=== PATIENT | male | born 1955 | race Caucasian/White ===

== ENCOUNTER → 2020-09-20 07:36 | Outpatient (BNVA) | payer SELFPAY | PROVIDERS: PCP Physician Assistant; Referring Provider Physician Assistant; Visit Provider Physician Assistant | DX: Z76.89 Persons encountering health services in other specified circumstances (principal) ==

== ENCOUNTER 2020-11-16 08:55 | Day surgery (SDC) | payer OTHER, SELFPAY ==
[2020-11-10 15:36] VITALS: BMI 41.5
--- NOTE | 2020-11-15 08:36 | P.CONAN_ITS ---
Documented by User: Tia Garza 11/15/20 08:37 HPI - Anesthesia Eval Consult details Narrative: 65yo M for Colonoscopy PMFSH Past Medical History Medical History Hernia of abdominal wall HTN (hypertension) Hyperlipidemia Obesity Sleep apnea Family History Family History Father No problems noted. Surgical History Surgical History Hx of colonoscopy Hx of umbilical hernia repair Hx of vasectomy Social History Social History Household Members: Spouse Are you a primary ocular care technologist to a significant other at home: No Do you presently have visiting nurse or other home services: No Alcohol intake: current Smoking Status: Never smoker Second Hand Smoke Exposure: No Use of substances other than those prescribed or required for medical reasons: No Advance Directives: No Advance Directives Information Provided: No Advance Directives on File: No Recently lost weight without trying: No Current occupational status: employed Current occupation: [employer] Meds Allergies Allergy/AdvReac Type Severity Reaction Status Date / Time Penicillins AdvReac Intermediate itching, Verified 11/10/20 15:23 severe rash Home Medications Medication Instructions Recorded Confirmed Type aspirin 81 mg tablet,delayed 81 mg PO DAILY 09/20/20 11/10/20 History release fenofibrate micronized 160 mg 160 mg PO DAILY 09/20/20 11/10/20 History tablet flaxseed oil 1,000 mg capsule 1,000 mg PO DAILY 09/20/20 11/10/20 History lisinopril 20 1 tab PO DAILY 09/20/20 11/10/20 History mg-hydrochlorothiazide 25 mg tablet pravastatin 80 mg tablet 80 mg PO DAILY 09/20/20 11/10/20 History amlodipine 1 tab PO DAILY 11/10/20 11/10/20 History Exam Exam Date and Time: November 15, 2020 0836 Height,Weight and Vital Signs: Height 5 ft 7 in Weight 120.202 kg Assessment and Plan Assessment Anesthesia Assessment: Chart Reviewed Documented by User: Sharee Ernst 11/16/20 09:50 [facility] Past Medical History Medical History Hernia of abdominal wall HTN (hypertension) Hyperlipidemia Obesity Sleep apnea Family History Family History Father No problems noted. Family history of problems with anesthesia: No Surgical History Surgical History Hx of colonoscopy Hx of umbilical hernia repair Hx of vasectomy History of Problems with Anesthesia: No Social History Social History Household Members: Spouse Are you a primary ocular care technologist to a significant other at home: No Do you presently have visiting nurse or other home services: No Alcohol intake: current Smoking Status: Never smoker Second Hand Smoke Exposure: No Use of substances other than those prescribed or required for medical reasons: No Advance Directives: No Advance Directives Information Provided: No Advance Directives on File: No Recently lost weight without trying: No Current occupational status: employed Current occupation: [employer] Meds Allergies Allergy/AdvReac Type Severity Reaction Status Date / Time Penicillins AdvReac Intermediate itching, Verified 11/10/20 15:23 severe rash Home Medications Medication Instructions Recorded Confirmed Type aspirin 81 mg tablet,delayed 81 mg PO DAILY 09/20/20 11/10/20 History release fenofibrate micronized 160 mg 160 mg PO DAILY 09/20/20 11/10/20 History tablet flaxseed oil 1,000 mg capsule 1,000 mg PO DAILY 09/20/20 11/10/20 History lisinopril 20 1 tab PO DAILY 09/20/20 11/10/20 History mg-hydrochlorothiazide 25 mg tablet pravastatin 80 mg tablet 80 mg PO DAILY 09/20/20 11/10/20 History amlodipine 1 tab PO DAILY 11/10/20 11/10/20 History Exam Height,Weight and Vital Signs: Vital Signs Temp Pulse Resp BP Pulse Ox 11/16/20 09:08 98.2 F 92 16 155/93 H 97 Airway Mallampati Class: III TM Dist: >3cm Neck ROM: Full Partial: Upper and Lower Heart: RRR Lungs: CTAB Assessment and Plan Assessment Anesthesia Assessment: Anesthesia Plan Discussed and Chart Reviewed Final Anesthetic Review NPO: Yes ASA Class: III Final Preanesthetic Review: No Changes in Pt Med Stat, Meds/Allgs Chart Reviewed, Consent Obtained/Reviewed and Anes Risks/Benef Reviewed Patient Risk: Intermediate Procedure Risk: Low Assessment/Block/Sedation in SS: Assess/Block/Sedation-SS Anesthetic Plan Anesthetic Plan: MAC: Disposition: Standard PACU
[2020-11-16 09:08] VITALS: BP 155/93; PULSE 92; RESP 16; TEMP 36.8; O2SAT 97
[2020-11-16] MEDS: Lactated Ringers 1,000 ML 100 ML IVCONT (09:22)
--- NOTE | 2020-11-16 09:32 | P.HPSUR_ITS ---
Pre-Procedural Eval Section B Chief Complaint: screening Relevant Family History (Specify if Yes): No Relevant Social History: None Present Medications: see Short Stay Collaborative assessment Medical History: Significant History (Hernia of abdominal wall HTN (hypertension) Hyperlipidemia Obesity Sleep apnea) History of Previous Operations: Relevant previous surgery/procedure and date(s) (vasectomy, umbilical hernia repair) Allergies: Allergies Allergy/AdvReac Type Severity Reaction Status Date / Time Penicillins AdvReac Intermediate itching, Verified 11/10/20 15:23 severe rash Review of Systems Sugical H&P ROS: Negative: Constitution, Cardiovascular, Respiratory, Neurolog ical, Psychiatric, Hem-Onc, Allergic/Immunologic, Gastrointestinal, Genitourinary, Musculoskeletal, Integumentary, Endocrine and Eyes/Ears/Nose/Throat Exam Surgical H&P Exam: Normal: HEENT, Normal: Heart, Normal: Lungs, Normal: Extremities, Normal: Abdomen, Normal: Skin and Normal: Neurological Plan Diagnosis/Plan: Unchanged I have reviewed the history and physical and performed a pertinent physical examination on my patient. No changes have occurred unless specified.
--- NOTE | 2020-11-16 10:08 | PM.OP ---
Brief Operative Note Date of Service: 11/16/20 Pre-op diagnosis: colon screen Post-op diagnosis: same Procedure: see op note Surgeon: Ashley Bartlett MD Anesthesia: MAC Estimated blood loss (mL): 0 Condition: stable Disposition: PACU
--- NOTE | 2020-11-16 10:08 | W.PM.OPN ---
Operative Note Operative Note Date of Service: 11/16/20 Narrative: Operative Information Procedure Description: Colonoscopy COLONOSCOPY Instrument: Olympus variable stiffness adult scope 190L Colonoscopy Monitoring: Vital signs and clinical assessment, continuous EKG monitoring, Pulse oximetry, Carbon Dioxide monitoring and blood pressure monitoring were done throughout the procedure. Colon withdrawal time was 12 minutes. Procedure: The patient was placed in the left lateral decubitis position and pre-procedure medications were administered. After a digital rectal examination of the ano-rectum, the video colonoscope was inserted into the rectum and advanced through the colon to the cecum/TI. The colonoscope was slowly withdrawn in a retrograde panoramic fashion and the colon mucosa was carefully examined including a retroflexed view of the rectum. Findings and interventions are described below. Procedure Difficulty: easy Findings: Terminal Ileum-normal Cecum:normal Ascending Colon: normal Transverse Colon -6-8 mm sessile polyp removed with forceps Descending Colon:normal Sigmoid Colon: variable sized diverticula seen, moderate severity Rectum: Retroflexion with small internal hemorrhoids, grade II Anorectum - int hemorrhoids seen at anal verge Colon preparation: [place] Bowel Preparation Scale Right colon; 2 Transverse colon: 2 Left colon; 2 (0 = Unprepared colon segment with mucosa not seen due to solid stool that cannot be cleared. 1 = Portion of mucosa of the colon segment seen, but other areas of the colon segment not well seen due to staining, residual stool and/or opaque liquid. 2 = Minor amount of residual staining, small fragments of stool and/or opaque liquid, but mucosa of colon segment seen well. 3 = Entire mucosa of colon segment seen well with no residual staining, small fragments of stool or opaque liquid) Impression and Post Procedure Diagnosis: polyp internal hemorrhoids diverticulosis Plan: High fiber diet leaflet Avoid straining at stool, epsom salts and sitz bath, anusol supps or cream Repeat Colonoscopy in 5 years or earlier if clinically indicated Above findings were reviewed with the patient and relevant handouts were provided if indicated.
[2020-11-16 11:00] VITALS: BP 114/77; PULSE 97; RESP 16; TEMP 37.2; O2SAT 96
[2020-11-16 11:15] VITALS: BP 120/68; PULSE 89; RESP 18; O2SAT 96
--- NOTE | 2020-11-16 15:00 | HO.POSTANES ---
Post Anesthesia Evaluation Post Anesthesia Evaluation Vital Signs: VSS Anesthesia: Monitored Mental Status: Awake Pain Control: Satisfactory Nausea/Vomiting: None Hydration: Adequate Anesthesia-Related Issues: No Anes. Related Issues
== END 2020-11-16 11:50 | disposition home or self-care (01) ==
PROVIDERS: Visit Provider Internal Medicine Gastroenterology
PROC: 0DJD8ZZ Inspection of Lower Intestinal Tract, Via Natural or Artificial Opening Endoscopic (ICD-10-PCS; CPT 45378; principal; 2020-11-16 10:10)
DX: Z12.11 Encounter for screening for malignant neoplasm of colon (principal); D12.3 Benign neoplasm of transverse colon; K57.30 Diverticulosis of large intestine without perforation or abscess without bleeding; K64.1 Second degree hemorrhoids; I10 Essential (primary) hypertension; G47.30 Sleep apnea, unspecified; E78.5 Hyperlipidemia, unspecified; Z79.82 Long term (current) use of aspirin; Z79.899 Other long term (current) drug therapy; Z88.0 Allergy status to penicillin
CPT/HCPCS: 45380; 88305

== ENCOUNTER → 2020-11-23 12:40 | Outpatient (BNVA) | payer OTHER, SELFPAY | PROVIDERS: Visit Provider Physician Assistant ==

== ENCOUNTER 2021-04-20 06:03 | Emergency (ER) | payer OTHER, SELFPAY ==
--- NOTE | ~2021-04-20 | CT_ITS ---
EXAMINATION: CT ABDOMEN AND PELVIS WITH CONTRAST CLINICAL INFORMATION: Right lower quadrant pain COMPARISON: None TECHNIQUE: Multidetector volumetric images were obtained from the superior aspect of the liver through the pubic symphysis following administration 85 mL of Omnipaque 350 intravenous contrast. Sagittal and coronal reformatted images were obtained on the technologist's workstation. Oral contrast: No This CT examination was performed using dose optimization techniques as appropriate, variously including the following: *Automated exposure control *Adjustment of mA and/or kV according to patient size (this includes techniques or standardized protocols for targeted exams where dose is matched to indication/reason for exam; i.e. extremities or head) *Use of iterative reconstruction technique DLP: 828 mGy-cm FINDINGS: LUNG BASES: The lung bases are clear. The heart size is normal. LIVER, GALLBLADDER, AND BILIARY TREE: The liver is normal in size, shape, and attenuation. No focal hepatic lesion or biliary ductal dilatation is present. The gallbladder is unremarkable with no evidence of radiopaque gallstones, gallbladder wall thickening, or obvious pericholecystic inflammatory changes. PANCREAS: Unremarkable. SPLEEN: Unremarkable. ADRENAL GLANDS: Unremarkable. KIDNEYS AND URETERS: The kidneys are normal in size, shape, and attenuation. No hydronephrosis, hydroureter, or calculi seen. There is mild bilateral perinephric stranding. BLADDER: Unremarkable. GASTROINTESTINAL TRACT: There is diffuse sigmoid and scattered rest of the colon diverticulosis without diverticulitis. The small bowel loops are normal caliber. The appendix is normal caliber. No free air or free fluid seen. ABDOMINAL WALL: No significant hernia is appreciated. LYMPH NODES: Normal. VASCULAR: Unremarkable. PELVIC VISCERA: Unremarkable. OSSEOUS STRUCTURES: There are degenerative disc changes L3-L4 through L5-S1 disc levels with mild ventral spondylosis. CT/CT abdomen pelvis w con IMPRESSION: No acute intra-abdominal process seen.. Diffuse sigmoid diverticulosis and scattered diverticuli in the rest of colon. Mild constipation. No obstruction. Normal appendix.
--- NOTE | 2021-04-20 06:39 | ED.ABDPAIN ---
HPI - Abdominal Pain General Chief Complaint: Abdominal Pain Stated Complaint: Abd pain Time Seen by Provider: 04/20/21 06:39 Source: patient Mode of arrival: ambulatory Limitations: no limitations History of Present Illness MD elicited complaint: abdominal pain Pertinent past history: none Onset (ago): day(s) (2) Pain Consistency: constant Location: RLQ Severity: moderate Quality: cramping and aching Radiation: none Migration to: no migration Exacerbating factors: movement Relieving factors: nothing Associated symptoms: denies other symptoms Related Data Home Medications Medication Instructions Recorded Confirmed aspirin 81 mg tablet,delayed 81 mg PO DAILY 09/20/20 11/24/20 release fenofibrate micronized 160 mg 160 mg PO DAILY 09/20/20 11/24/20 tablet flaxseed oil 1,000 mg capsule 1,000 mg PO DAILY 09/20/20 11/24/20 lisinopril 20 1 tab PO DAILY 09/20/20 11/24/20 mg-hydrochlorothiazide 25 mg tablet pravastatin 80 mg tablet 80 mg PO DAILY 09/20/20 11/24/20 amlodipine 1 tab PO DAILY 11/10/20 11/24/20 Previous Rx's Medication Instructions Recorded levofloxacin 500 mg PO DAILY 7 Days #7 tab 04/20/21 Allergies Allergy/AdvReac Type Severity Reaction Status Date / Time Penicillins AdvReac Intermediate itching, Verified 11/10/20 15:23 severe rash Review of Systems Review of Systems Constitutional : No Weight loss, No Fever, No Chills ENT/Mouth : No sore throat, No Rhinorrhea Eyes: No Swelling, No Redness Cardiovascular : No Chest Pain, No SOB, NoEdema Respiratory : No Cough, No Sputum, No Wheezing Gastrointestinal : no Nausea, no Vomiting, no Diarrhea, positive abdominal Pain, No Hematochezia, No Melena Genitourinary : No Dysuria, No Urinary Frequency, No Hematuria, No Urgency Musculoskeletal : No joint pain, No Myalgias, No Joint Swelling Skin : No Skin Lesions, No rash Neuro : No Weakness, No Numbness, No Dizziness, No Headache Psych : No Anxiety/Panic, No Depression Heme/Lymph: No Bruising, No Lymphadenopathy Endocrine : No Polyuria, No Polydipsia All other systems reviewed and are negative. Physical Exam Vital Signs: Vital Signs: Last Vital Signs Temp 98.1 F 04/20/21 07:11 Pulse 89 04/20/21 07:11 Resp 16 04/20/21 07:11 BP 142/95 H 04/20/21 07:11 Pulse Ox 95 04/20/21 07:11 Body Mass Index 43.0 Appearance: Alert. Oriented X3. No acute distress. Eyes: Pupils equal, round and reactive to light. ENT: Pharynx normal. Neck: Normal inspection. Neck supple. CVS: Normal heart rate and rhythm. Pulses normal. Respiratory: No respiratory distress. Breath sounds normal. Abdomen: Soft and moderate RLQ pain no rebound or guarding Skin: Skin warm and dry. Normal skin color. Normal skin turgor. Extremities: No lower extremity edema. No calf ttp Neuro: Oriented X 3. No motor deficit. No sensory deficit. Course Course Course Narrative: no WBC count, no signs of infection, normal appendix on CT scan will ask surgery to evaluate given symptoms Dr. Daniel also agrees with normal appendix on CT scan, given stranding will start on levofloxacin in case of clinical pyelo - stable for DC MDM - Abdominal Pain MDM Narrative Medical decision making narrative: 65 yo male with hx of HTN, s/p L inguinal hernia repair several years ago comes in with 2 days of RLQ pain worsening at this time no other or GI complaints, no prior episodes of this in the past, will need labs, CT scan for appendicitis, IV toradol for pain, dispo per results and findings. Differential Diagnosis Differential diagnosis: Likely abdominal pain, acute appendicitis, calculus of kidney, diverticulitis, gastroenteritis and renal colic; Unlikely aortic dissection Lab Data Result diagrams: 04/20/21 07:46 04/20/21 07:46 Labs: Lab Results 04/20/21 04/20/21 04/20/21 Range/Units 07:46 07:46 07:46 WBC 4.9 (4.8-10.8) X10*3/uL RBC 4.67 (4.60-5.80) X10*6/uL Hgb 13.8 L (14.0-18.0) g/dl Hct 40.8 L (42-52) % MCV 87.4 (80-98) fL MCH 29.6 (27.0-33.0) pg MCHC 33.8 (31.0-36.0) g/dl RDW 13.4 (11.0-16.0) % Plt Count 173 (160-400) X10*3/uL MPV 10.7 (9.4-12.4) fL Immature Gran % (Auto) 0.6 H (0.0-0.4) % Neut % (Auto) 49.5 (45-73) % Lymph % (Auto) 32.7 (20-40) % [place] % (Auto) 12.5 H (2-11) % Eos % (Auto) 4.1 H (0-4) % Baso % (Auto) 0.6 (0-2) % Lymph # (Auto) 1.6 (1.2-4.9) X10*3/uL [place] # (Auto) 0.6 (0.1-1.2) X10*3/uL Eos # (Auto) 0.2 (0.0-0.4) X10*3/uL Baso # (Auto) 0.0 (0.0-0.2) X10*3/uL Abs Immat Gran (auto) 0.03 (0.00-0.03) X10*3/uL Absolute Neuts (auto) 2.4 (2.0-8.3) X10*3/uL Absolute Nucleated RBC 0.000 (0.0-0.012) X10*3/uL Nucleated RBC % (auto) 0.0 (0.0-0.2) /100WBC Sodium 141 (135-145) mmol/L Potassium 4.3 (3.3-5.1) mmol/L Chloride 105 (96-108) mmol/L Carbon Dioxide 27 (22-29) mmol/L Anion Gap 13 (12-20) BUN 14 (9-16) mg/dL Creatinine 0.84 (0.5-1.4) mg/dL Estim Creat Clear Calc 114.0 Estimated GFR > 60 Random Glucose 115 (60-115) mg/dL Calcium 9.3 (8.4-10.2) mg/dL Magnesium 2.1 (1.6-2.6) mg/dL Total Bilirubin 0.9 (0.0-1.0) mg/dL Direct Bilirubin 0.3 (0.0-0.5) mg/dL AST 23 (5-37) U/L ALT 31 (0-40) U/L Alkaline Phosphatase 64 (39-117) U/L Total Protein 6.7 (6.5-8.0) g/dL Albumin 4.3 (3.5-5.0) g/dL Lipase 18 (8-78) U/L Urine Color Urine Appearance Urine pH (5.0-8.0) Ur Specific [place] (1.005-1.025) Urine Protein (NEG-TRACE) MG/DL Urine Glucose (UA) (NEG) MG/DL Urine Ketones (NEG) MG/DL Urine Blood (NEG) Urine Nitrite (NEG) Ur Leukocyte Esterase (NEG) COVID-19 ([place]) (Negative) COVID-19 Clin Com 04/20/21 04/20/21 Range/Units 07:46 10:35 WBC (4.8-10.8) X10*3/uL RBC (4.60-5.80) X10*6/uL Hgb (14.0-18.0) g/dl Hct (42-52) % MCV (80-98) fL MCH (27.0-33.0) pg MCHC (31.0-36.0) g/dl RDW (11.0-16.0) % Plt Count (160-400) X10*3/uL MPV (9.4-12.4) fL Immature Gran % (Auto) (0.0-0.4) % Neut % (Auto) (45-73) % Lymph % (Auto) (20-40) % [place] % (Auto) (2-11) % Eos % (Auto) (0-4) % Baso % (Auto) (0-2) % Lymph # (Auto) (1.2-4.9) X10*3/uL [place] # (Auto) (0.1-1.2) X10*3/uL Eos # (Auto) (0.0-0.4) X10*3/uL Baso # (Auto) (0.0-0.2) X10*3/uL Abs Immat Gran (auto) (0.00-0.03) X10*3/uL Absolute Neuts (auto) (2.0-8.3) X10*3/uL Absolute Nucleated RBC (0.0-0.012) X10*3/uL Nucleated RBC % (auto) (0.0-0.2) /100WBC Sodium (135-145) mmol/L Potassium (3.3-5.1) mmol/L Chloride (96-108) mmol/L Carbon Dioxide (22-29) mmol/L Anion Gap (12-20) BUN (9-16) mg/dL Creatinine (0.5-1.4) mg/dL Estim Creat Clear Calc Estimated GFR Random Glucose (60-115) mg/dL Calcium (8.4-10.2) mg/dL Magnesium (1.6-2.6) mg/dL Total Bilirubin (0.0-1.0) mg/dL Direct Bilirubin (0.0-0.5) mg/dL AST (5-37) U/L ALT (0-40) U/L Alkaline Phosphatase (39-117) U/L Total Protein (6.5-8.0) g/dL Albumin (3.5-5.0) g/dL Lipase (8-78) U/L Urine Color YELLOW Urine Appearance CLEAR Urine pH 7.0 (5.0-8.0) Ur Specific [place] 1.020 (1.005-1.025) Urine Protein NEG (NEG-TRACE) MG/DL Urine Glucose (UA) NEG (NEG) MG/DL Urine Ketones NEG (NEG) MG/DL Urine Blood NEG (NEG) Urine Nitrite NEG (NEG) Ur Leukocyte Esterase NEG (NEG) COVID-19 ([place]) Negative (Negative) COVID-19 Clin Com See Note Discharge Plan Discharge Clinical Impression: Abdominal pain, Infection of kidney Patient Disposition: Home, Self-Care Instructions: Abdominal Pain (ED) Additional Instructions: return to ED for any worsening symptoms or concerns CT scan normal appendix, it did show some stranding around the R kidney area you could have passed a stone or this could be a sign of infection STOP TAKING YOUR ZPAK Prescriptions: New levofloxacin 500 mg tablet 500 mg PO DAILY 7 Days Qty: 7 RF: 0 No Action amlodipine 5 mg tablet 1 tab PO DAILY RF: 0 pravastatin 80 mg tablet 80 mg PO DAILY RF: 0 lisinopril-hydrochlorothiazide 20-25 mg tablet 1 tab PO DAILY RF: 0 fenofibrate micronized 160 mg tablet 160 mg PO DAILY RF: 0 flaxseed oil [Nursery-3 Flaxseed Oil] 1,000 mg capsule 1,000 mg PO DAILY RF: 0 aspirin 81 mg tablet,delayed release (DR/EC) 81 mg PO DAILY RF: 0 Referrals: Physician,Unknown [Primary Care Provider] - 2 days (if not better PCP) Stand Alone Forms: Work/School Release [facility] Past Medical History Attestation statement: The following information was validated with the patient. Medical History Hernia of abdominal wall HTN (hypertension) Hyperlipidemia Obesity Sleep apnea Surgical History Hx of colonoscopy Hx of umbilical hernia repair Hx of vasectomy Family History Family History Father No problems noted. Social History Social History Household Members: Spouse Are you a primary healthcare consulting manager to a significant other at home: No Do you presently have visiting nurse or other home services: No Alcohol intake: current Second Hand Smoke Exposure: No Advance Directives: No Advance Directives Information Provided: No Current occupational status: employed Current occupation: [employer]
[2021-04-20 07:11] VITALS: BP 142/95; PULSE 89; RESP 16; TEMP 36.7; O2SAT 95; BMI 43.0
[2021-04-20 07:51] LABS: MANUAL DIFF FLAG NO
[2021-04-20 07:53] LABS: Basophils Percent Auto 0.6 % (0-2); Eosinophils Absolute Auto 0.2 X10*3/uL (0.0-0.4); Eosinophils Percent Auto 4.1 % (0-4); Hematocrit 40.8 % (42-52); Hemoglobin 13.8 g/dl (14.0-18.0); Imm Gran Abs Auto 0.03 X10*3/uL (0.00-0.03); Imm Gran Pct Auto 0.6 % (0.0-0.4); Lymphocytes Absolute Auto 1.6 X10*3/uL (1.2-4.9); Lymphocytes Percent Auto 32.7 % (20-40); Mean Corpuscular HGB Conc 33.8 g/dl (31.0-36.0); Mean Corpuscular Hemoglobin 29.6 pg (27.0-33.0); Mean Corpuscular Volume 87.4 fL (80-98); Mean Platelet Volume 10.7 fL (9.4-12.4); Monocytes Absolute Auto 0.6 X10*3/uL (0.1-1.2); Monocytes Percent Auto 12.5 % (2-11); Neutrophils Absolute Auto 2.4 X10*3/uL (2.0-8.3); Neutrophils Percent Auto 49.5 % (45-73); Platelet Count 173 X10*3/uL (160-400); Red Blood Count 4.67 X10*6/uL (4.60-5.80); Red Cell Distribution Width 13.4 % (11.0-16.0); White Blood Count 4.9 X10*3/uL (4.8-10.8)
[2021-04-20] MEDS: Ketorolac Tromethamine 30 MG/ML VIAL IVPUSH (07:57)
[2021-04-20 08:07] LABS: COVID-19 Test Negative (Negative)
[2021-04-20 08:14] LABS: Anion Gap 13 (12-20); Blood Urea Nitrogen 14 mg/dL (9-16); Calcium 9.3 mg/dL (8.4-10.2); Carbon Dioxide 27 mmol/L (22-29); Chloride 105 mmol/L (96-108); Estimated Glomerular Filt Rate > 60; Glucose Random 115 mg/dL (60-115); Potassium 4.3 mmol/L (3.3-5.1); Sodium 141 mmol/L (135-145)
[2021-04-20 08:16] LABS: Alanine Aminotransferase 31 U/L (0-40); Albumin Level 4.3 g/dL (3.5-5.0); Alkaline Phosphatase 64 U/L (39-117); Aspartate Amino Transferase 23 U/L (5-37); Bilirubin Direct 0.3 mg/dL (0.0-0.5); Bilirubin Total 0.9 mg/dL (0.0-1.0); Lipase 18 U/L (8-78); Magnesium 2.1 mg/dL (1.6-2.6); Total Protein 6.7 g/dL (6.5-8.0)
[2021-04-20] MEDS: iohexoL 350 MG/ML 100 ML INFUS..BTL 85 ML IV (08:57)
[2021-04-20 10:41] LABS: Glucose Urine UA NEG (NEG); Leukocyte Esterase Urine NEG (NEG); Nitrite Urine NEG (NEG); Urine Blood NEG (NEG); Urine Ketones NEG (NEG); Urine Protein NEG (NEG-TRACE)
[2021-04-20 10:42] LABS: Appearance Urine CLEAR; Color Urine YELLOW
== END 2021-04-20 11:01 | disposition home or self-care (01) ==
PROVIDERS: Emergency Provider Emergency Medicine
DX: N15.9 Renal tubulo-interstitial disease, unspecified (principal); I10 Essential (primary) hypertension; Z20.822 Contact with and (suspected) exposure to COVID-19
CPT/HCPCS: 36415; 74177; 80048; 80076; 81003; 83690; 83735; 85025; 87635; 96374; 99283; 99284; J1885; Q9967

== ENCOUNTER 2024-03-06 16:28 | Emergency (ER) | payer OTHER, SELFPAY ==
--- NOTE | ~2024-03-06 | CT_ITS ---
EXAMINATION: CT ABDOMEN AND PELVIS WITH CONTRAST CLINICAL INFORMATION: Abdominal pain COMPARISON: 04/20/2021 TECHNIQUE: Multidetector volumetric images were obtained from the superior aspect of the liver through the pubic symphysis following administration 85 mL of Omnipaque 350 intravenous contrast. Sagittal and coronal reformatted images were obtained on the technologist's workstation. Oral contrast: No This CT examination was performed using dose optimization techniques as appropriate, variously including the following: *Automated exposure control *Adjustment of mA and/or kV according to patient size (this includes techniques or standardized protocols for targeted exams where dose is matched to indication/reason for exam; i.e. extremities or head) *Use of iterative reconstruction technique DLP: 903 mGy-cm FINDINGS: LUNG BASES: Atherosclerotic calcifications are present in the coronary arteries. Minimal atelectasis in the lung bases. LIVER, GALLBLADDER, AND BILIARY TREE: Relative hypoattenuation of the hepatic parenchyma as can be seen with steatosis. Liver contour is normal. No focal lesions or biliary ductal dilatation. The gallbladder is unremarkable with no evidence of radiopaque gallstones, gallbladder wall thickening, or obvious pericholecystic inflammatory changes. PANCREAS: Unremarkable. SPLEEN: Measures 15 cm in length, consistent with splenomegaly. No focal lesions. ADRENAL GLANDS: Unremarkable. KIDNEYS AND URETERS: The kidneys are normal in size, shape, and attenuation. No hydronephrosis, hydroureter, or calculi seen. No perinephric stranding. There is a 1.4 cm hypoattenuating cyst in the interpolar region of the right kidney. Small subcentimeter foci of cortical hypoattenuation kidneys are too small to characterize, though statistically favored to correspond to simple cysts. No recommended imaging follow-up. BLADDER: Unremarkable. GASTROINTESTINAL TRACT: Stomach, small bowel, and colon are normal in caliber. No bowel wall thickening or surrounding inflammatory changes. Appendix is normal. Moderate diverticulosis in the sigmoid colon. A subacute diverticulitis. No intraperitoneal free fluid or free air. ABDOMINAL WALL: There is a moderate-sized, indirect, fat-containing right inguinal hernia. No bowel involvement. LYMPH NODES: Normal. VASCULAR: Atherosclerotic calcifications are present in the abdominal aorta and iliac arteries. No aneurysmal dilatation. PELVIC VISCERA: Dystrophic calcifications in the central prostate. Prostate gland is at the upper limits of normal in size. OSSEOUS STRUCTURES: Moderate degenerative spondylosis in the lower lumbar spine. No acute osseous findings. CT/CT abdomen pelvis w IV con IMPRESSION: 1. No acute intra-abdominal or intrapelvic abnormalities. 2. Moderate-sized fat-containing indirect right inguinal hernia. 3. Moderate sigmoid diverticulosis without evidence of acute diverticulitis. 4. Mild splenomegaly. 5. Hepatic steatosis.
[2024-03-06 16:31] VITALS: BP 142/78; PULSE 108; RESP 16; TEMP 36; O2SAT 95; BMI 40.0
--- NOTE | 2024-03-06 16:32 | ED.GENADULT ---
HPI - General Adult General Chief complaint: Abdominal Pain Stated complaint: dr covarrubias here for intestinal trouble for 3 days Time Seen by Provider: 03/06/24 19:49 Source: patient Mode of arrival: ambulatory Limitations: no limitations History of Present Illness HPI narrative: Patient is a 68 year old assigned male at with a history of HTN presenting to the emergency department today with lower abdominal pain and diarrhea. Patient states that over the last 3 days he he has abdominal pain and diarrhea. Patient states that he has been intermittently taking immodium but it isn't helping. Patient denies any dizziness, lightheadedness, nausea, vomiting, fever, chills, blurry vision, double vision, loss of vision, chest pain, difficulty breathing, shortness of breath, back pain, night sweats, pain with urination, increased urinary frequency, increased urinary urgency, blood in his urine or stool, syncope or a near syncopal episode, recent trauma or falls, bowel incontinence, bladder incontinence, bowel retention, bladder retention, or any other complaints at this time. Onset (ago): day(s) (3) Location: abdomen Severity: mild Severity scale (1-10): 3 Relieving factors: none Exacerbating factors: none Associated symptoms: denies other symptoms Treatments prior to arrival: other (immodium) Related Data Home Medications ?Medication ?Instructions ?Recorded ?Confirmed aspirin 81 mg tablet,delayed 81 mg PO DAILY 09/20/20 11/24/20 release fenofibrate micronized 160 mg 160 mg PO DAILY 09/20/20 11/24/20 tablet flaxseed oil 1,000 mg capsule 1,000 mg PO DAILY 09/20/20 11/24/20 ([employer]-3 Flaxseed Oil) lisinopril 20 1 tab PO DAILY 09/20/20 11/24/20 mg-hydrochlorothiazide 25 mg tablet pravastatin 80 mg tablet 80 mg PO DAILY 09/20/20 11/24/20 amlodipine 5 mg tablet 1 tab PO DAILY 11/10/20 11/24/20 Previous Rx's ?Medication ?Instructions ?Recorded levofloxacin 500 mg tablet 500 mg PO DAILY 7 days #7 tabs 04/20/21 metformin 500 mg tablet 500 mg PO BID #60 tabs 03/06/24 Allergies Allergy/AdvReac Type Severity Reaction Status Date / Time Penicillins AdvReac Intermediate itching, Verified 03/06/24 16:33 severe rash Review of Systems Constitutional: Constitutional: Reports no additional constitutional complaints, Denies chills, Denies fever(s) and Denies night sweats Eyes: Eyes: Reports no additional eye complaints, Denies blurry vision, Denies change in vision, Denies diplopia, Denies eye discharge, Denies loss of vision and Denies eye pain ENT: Denies dizziness Cardiovascular: Cardiovascular: Reports no additional cardiovascular complaints, Denies chest pain, Denies lightheadedness, Denies Loss of Consciousness and Denies dyspnea Respiratory: Respiratory: Reports no additional respiratory complaints and Denies dyspnea Gastrointestinal: Gastrointestinal: Reports no additional gastrointestinal complaints, Reports abdominal pain, Denies melena, Denies hematochezia, Denies change in bowel habits, Denies change in stool character and Reports diarrhea Genitourinary: Genitourinary: Reports no additional male genitourinary complaints, Denies hematuria, Denies oliguria, Denies difficulty urinating, Denies dysuria, Denies urinary frequency, Denies urinary hesitancy, Denies urinary incontinence and Denies urinary urgency Musculoskeletal: Musculoskeletal: Reports no additional musculoskeletal complaints, Denies numbness and Denies tingling Neurologic: Denies dizziness, Denies loss of vision, Denies numbness and Denies tingling Psychiatric: Psychiatric: Reports no additional psychiatric complaints Endocrine: Endocrine: Reports no additional endocrine complaints Hematologic/Lymphatic: Hematologic/Lymphatic: Reports no additional hematologic/lymphatic complaints Allergic/Immunologic: Allergic/Immunologic: Reports no additional allergic/immunologic complaints PMFSH Past Medical History Attestation statement: The following information was validated with the patient. Source: old records reviewed and nursing notes reviewed Medical History Obesity Hyperlipidemia HTN (hypertension) Sleep apnea Hernia of abdominal wall Surgical History Hx of vasectomy Hx of colonoscopy Hx of umbilical hernia repair Family History Family History Father No problems noted. Social History Social History Household Members: Spouse Are you a primary urgent care physician assistant to a significant other at home: No Do you presently have visiting nurse or other home services: No Alcohol intake: current Second Hand Smoke Exposure: No Advance Directives: No Advance Directives Information Provided: No Current occupational status: employed Current occupation: [employer] Physical Exam ED Vital Signs: Vital Signs - 24 hr 03/06/24 16:31 03/06/24 19:51 03/06/24 21:39 Temperature 96.8 F 98.4 F 98.1 F Pulse Rate 108 H 100 92 Respiratory Rate 16 18 18 Blood Pressure 142/78 H 122/74 114/78 Pulse Oximetry 95 94 94 Oxygen Delivery Method Room Air Room Air Room Air 03/07/24 00:09 Temperature 98.1 F Pulse Rate 92 Respiratory Rate 18 Blood Pressure 114/78 Pulse Oximetry 94 Oxygen Delivery Method Room Air BMI result Body Mass Index 40.0 Const General: cooperative, no acute distress, alert and awake Nutritional Appearance: well nourished Orientation/consciousness: patient oriented x3 Limitations: no limitations HENMT Head: Yes normal to inspection and Yes atraumatic Ears: hearing grossly normal bilaterally and external ears normal General nose exam: Normal external nose present, no nasal discharge noted and no epistaxis Face and sinus: Yes normal facial exam, No abrasion and No laceration Mouth: Normal oral and palatal mucosa present, no drooling and no muffled voice Eyes General: appearance normal, both eyes and all related structures Periorbital: periorbital findings normal Eyelids: Yes eyelids normal Conjunctivae: conjunctivae normal Pupils: Equal, round and reactive pupils present EOM: EOMs intact bilaterally Neck Neck: Yes normal visual inspection, Yes full ROM and Yes no lymphadenopathy Chest Chest palpation & inspection: normal inspection of the chest Resp Effort & Inspection: normal respiratory effort and able to speak in complete sentences GI Inspection: Yes normal to inspection Palpation (GI): Soft to palpation, not firm, nontender, no guarding and not rigid Neuro General: patient oriented x3 and moves all extremities Cranial nerves: Yes Equal, round and reactive pupils present Cognition (Neuro): normal cognition Motor exam (neuro): 5/5 motor strength present throughout Sensory Exam: Normal double simultaneous stimulation for sensation Coordination: [id number] test normal Extrem General: Yes normal to inspection, Yes full ROM and Yes capillary refill normal Psych Appearance: grossly normal Mental Status: mental status grossly normal Affect: normal affect Attitude: cooperative Thought process: Normal thought process present Thought content: Normal thought content present Insight: Good insight present (Psych) Course Course Course Narrative: This is a rapid medical exam performed by Josse Blue NP: Additional HPI, ROS, PE not included below will be deferred to primary provider. Patient is a 68-year-old male presenting to the emergency department with complaint of diarrhea for 3 days, lower abdominal pain and dysuria since yesterday afternoon. PCP referred to ED for evaluation. Denies fevers. Denies vomiting. Denies recent abx or hematochezia/melena. Mildly tachycardic in triage, abdomen soft, TTP lower quadrants. Plan: labs, UA Medications Administered Discontinued Medications Generic Name Dose Route Start Last Admin Trade Name Freq PRN Reason Stop Dose Admin Sodium Chloride 1,000 mls @ 999 mls/hr 03/06/24 20:00 03/06/24 21:22 Ns IV 03/06/24 21:00 Infused .Q1H1M MELVA Infusion Iohexol 85 ml 03/06/24 20:31 03/06/24 20:31 Iohexol 350 Mg/Ml 100 Ml Infus..Btl IV 03/06/24 20:32 85 ml ONCE ONE Administration Medical Decision Making Medical Decision Making [facility] Narrative: Patient is a 68 year old assigned male at with a history of HTN presenting to the emergency department today with lower abdominal pain and diarrhea. Patient's physical exam was unremarkable. Patient's blood work showed an elevated glucose of 367 but was otherwise unremarkable. Patient's urine showed no acute process but did show >1,000 glucose. Unfortunately, a HGBA1C could not be obtained this evening. Patient's CT abdomen/pelvis showed no acute process. I staffed the patient with my attending physician, Dr. Rogers. Together, we determined the patient likely has a new diagnosis of diabetes and determined the patient should start Metformin. I explained my physical exam findings as well as all test results to the patient. I answered all questions asked by the patient. I explained to the patient that the metformin could make his GI upset worse. I stressed the importance of the patient taking his medication as prescribed. I stressed the importance of the patient following up with his primary care provider. I stressed the importance of the patient returning to the emergency department immediately if his symptoms were to worsen or if he were to develop any dizziness, shortness of breath, difficulty breathing, chest pain, blurry vision, loss of vision, nausea, vomiting, abdominal pain, fever, chills, back pain, or any other complaints. Patient verbalized agreement and understanding with this treatment plan and discharge. Differential Diagnosis Differential Diagnoses: The differential diagnosis associated with the presentation includes Abdominal pain Diarrhea New DM Gastroenteritis Colitis Admission/Observation Consideration of admission/observation: Escalation of care including admission/observation considered Patient would have been admitted to the hospital had his work up had any findings where hospital admission was appropriate and his clinical presentation warranted hospital admission. Lab Data [facility] Lab Attestation statement: I reviewed the patient's lab results. My interpretation of these results are in the [facility] Rationale portion of this note. 03/06/24 17:21 03/06/24 17:21 Labs: Lab Results 03/06/24 03/06/24 Range/Units 17:21 20:01 WBC 6.8 (4.8-10.8) X10*3/uL RBC 5.60 (4.60-5.80) X10*6/uL Hgb 16.6 (14.0-18.0) g/dl Hct 47.2 (42.0-52.0) % MCV 84.3 (80.0-98.0) fL MCH 29.6 (27.0-33.0) pg MCHC 35.2 (31.0-36.0) g/dl RDW 13.2 (11.0-16.0) % Plt Count 202 (160-400) X10*3/uL MPV 11.5 (9.4-12.4) fL Immature Gran % (Auto) 0.4 (0.0-0.4) % Neut % (Auto) 64.2 (45-73) % Lymph % (Auto) 23.4 (20-40) % Coke % (Auto) 10.0 (2-11) % Eos % (Auto) 1.6 (0-4) % Baso % (Auto) 0.4 (0-2) % Lymph # (Auto) 1.6 (1.2-4.9) X10*3/uL Coke # (Auto) 0.7 (0.1-1.2) X10*3/uL Eos # (Auto) 0.1 (0.0-0.4) X10*3/uL Baso # (Auto) 0.0 (0.0-0.2) X10*3/uL Abs Immat Gran (auto) 0.03 (0.00-0.03) X10*3/uL Absolute Neuts (auto) 4.4 (2.0-8.3) x10*3/uL Absolute Nucleated RBC 0.000 (0.0-0.012) X10*3/uL Nucleated RBC % (auto) 0.0 (0.0-0.2) /100WBC ESR 5 (0-15) MM/HR Sodium 136 (135-145) mmol/L Potassium 4.2 (3.3-5.1) mmol/L Chloride 99 (96-108) mmol/L Carbon Dioxide 26 (22-29) mmol/L Anion Gap 15 (12-20) BUN 10 (9-16) mg/dL Creatinine 1.02 (0.5-1.4) mg/dL Estim Creat Clear Calc 83.9 Estimated GFR > 60 Random Glucose 367 H* (60-115) mg/dL Calcium 10.4 H D (8.4-10.2) mg/dL Magnesium 2.1 (1.6-2.6) mg/dL Total Bilirubin 0.7 (0.0-1.0) mg/dL AST 26 (5-37) U/L ALT 33 (0-40) U/L Alkaline Phosphatase 91 (39-117) U/L C-Reactive Protein 0.96 H (< or = 0.50) mg/dL Total Protein 7.6 (6.5-8.0) g/dL Albumin 4.6 (3.5-5.0) g/dL Lipase 22 (8-78) U/L Urine Color Yellow Urine Appearance Clear Urine pH 5.5 (5.0-9.0) Ur Specific Lennox 1.025 (1.005-1.025) Urine Protein Trace (Neg-Trace) mg/dL Urine Glucose (UA) >=1000 H (Negative) mg/dL Urine Ketones Negative (Negative) mg/dL Urine Blood Negative (Negative) Urine Nitrite Negative (Negative) Ur Leukocyte Esterase Negative (Negative) Urine RBC 0-2 (0-2) /HPF Urine WBC 0-5 (0-5) /HPF Ur Squamous Epith Cells 0-2 (0-2) /HPF Urine Bacteria None Seen (None Seen) Hyaline Casts 0-2 (0-2) /LPF Influenza Type A (PCR) NEGATIVE (Negative) Influenza Type B (PCR) NEGATIVE (Negative) RSV RNA Qual (PCR) NEGATIVE (Negative) SARS-CoV-2 RNA (RT-PCR) NEGATIVE (Negative) Independent Interpretation I performed an independent interpretation of an: CT Scan Interpretation: My interpretation is in agreement with the radiologist's impression of this imaging study. EXAMINATION: CT ABDOMEN AND PELVIS WITH CONTRAST CLINICAL INFORMATION: Abdominal pain COMPARISON: 04/20/2021 TECHNIQUE: Multidetector volumetric images were obtained from the superior aspect of the liver through the pubic symphysis following administration 85 mL of Omnipaque 350 intravenous contrast. Sagittal and coronal reformatted images were obtained on the technologist's workstation. Oral contrast: No This CT examination was performed using dose optimization techniques as appropriate, variously including the following: *Automated exposure control *Adjustment of mA and/or kV according to patient size (this includes techniques or standardized protocols for targeted exams where dose is matched to indication/reason for exam; i.e. extremities or head) *Use of iterative reconstruction technique DLP: 903 mGy-cm FINDINGS: LUNG BASES: Atherosclerotic calcifications are present in the coronary arteries. Minimal atelectasis in the lung bases. LIVER, GALLBLADDER, AND BILIARY TREE: Relative hypoattenuation of the hepatic parenchyma as can be seen with steatosis. Liver contour is normal. No focal lesions or biliary ductal dilatation. The gallbladder is unremarkable with no evidence of radiopaque gallstones, gallbladder wall thickening, or obvious pericholecystic inflammatory changes. PANCREAS: Unremarkable. SPLEEN: Measures 15 cm in length, consistent with splenomegaly. No focal lesions. ADRENAL GLANDS: Unremarkable. KIDNEYS AND URETERS: The kidneys are normal in size, shape, and attenuation. No hydronephrosis, hydroureter, or calculi seen. No perinephric stranding. There is a 1.4 cm hypoattenuating cyst in the interpolar region of the right kidney. Small subcentimeter foci of cortical hypoattenuation kidneys are too small to characterize, though statistically favored to correspond to simple cysts. No recommended imaging follow-up. BLADDER: Unremarkable. GASTROINTESTINAL TRACT: Stomach, small bowel, and colon are normal in caliber. No bowel wall thickening or surrounding inflammatory changes. Appendix is normal. Moderate diverticulosis in the sigmoid colon. A subacute diverticulitis. No intraperitoneal free fluid or free air. ABDOMINAL WALL: There is a moderate-sized, indirect, fat-containing right inguinal hernia. No bowel involvement. LYMPH NODES: Normal. VASCULAR: Atherosclerotic calcifications are present in the abdominal aorta and iliac arteries. No aneurysmal dilatation. PELVIC VISCERA: Dystrophic calcifications in the central prostate. Prostate gland is at the upper limits of normal in size. OSSEOUS STRUCTURES: Moderate degenerative spondylosis in the lower lumbar spine. No acute osseous findings. CT/CT abdomen pelvis w IV con IMPRESSION: 1. No acute intra-abdominal or intrapelvic abnormalities. 2. Moderate-sized fat-containing indirect right inguinal hernia. 3. Moderate sigmoid diverticulosis without evidence of acute diverticulitis. 4. Mild splenomegaly. 5. Hepatic steatosis. Dictated By: Santos Garcia MD Signed By: Electronically signed by Santos Garcia MD 03/06/24 4109 Radiology Impression Discussion of test interpretation with radiology: I have reviewed the radiologist's reading. Prescription Management I considered prescription management with: Other (patient prescribed metformin) Chronic Conditions Patient?s care impacted by: Diabetes (new onset) and Hypertension Discharge Plan Discharge Clinical Impression: Diabetes, Diarrhea Patient Disposition: Home, Self-Care Instructions: Type 2 Diabetes in Adults: New Diagnosis (DC), Diabetes and Nutrition (ED), Diabetes and Exercise (ED) Additional Instructions: Given your elevated blood sugar and glucose found in urine - I am very suspicious of new onset diabetes. Follow up with your primary care provider. Return to the emergency department immediately if your symptoms worsen or if you develop any dizziness, shortness of breath, difficulty breathing, chest pain, blurry vision, loss of vision, nausea, vomiting, abdominal pain, fever, chills, back pain, or any other complaints. Prescriptions: New metformin 500 mg tablet 500 mg PO BID Qty: 60 0RF No Action amlodipine 5 mg tablet 1 tab PO DAILY levofloxacin 500 mg tablet 500 mg PO DAILY 7 Days Qty: 7 0RF pravastatin 80 mg tablet 80 mg PO DAILY lisinopril-hydrochlorothiazide 20-25 mg tablet 1 tab PO DAILY fenofibrate micronized 160 mg tablet 160 mg PO DAILY flaxseed oil [[employer]-3 Flaxseed Oil] 1,000 mg capsule 1,000 mg PO DAILY Rx Instructions: administer with a meal aspirin 81 mg tablet,delayed release (DR/EC) 81 mg PO DAILY Referrals: July Vail MD [Primary Care Provider] - Stand Alone Forms: Work/School Release Interventions: ED Discharge Assessment Last Done: 03/07/24 00:09 Discharge Date/Time: 03/07/24 00:10 Print Language: Belarusian
[2024-03-06 17:25] LABS: MANUAL DIFF FLAG NO
[2024-03-06 17:28] LABS: Basophils Percent Auto 0.4 % (0-2); Eosinophils Absolute Auto 0.1 X10*3/uL (0.0-0.4); Eosinophils Percent Auto 1.6 % (0-4); Hematocrit 47.2 % (42.0-52.0); Hemoglobin 16.6 g/dl (14.0-18.0); Imm Gran Abs Auto 0.03 X10*3/uL (0.00-0.03); Imm Gran Pct Auto 0.4 % (0.0-0.4); Lymphocytes Absolute Auto 1.6 X10*3/uL (1.2-4.9); Lymphocytes Percent Auto 23.4 % (20-40); Mean Corpuscular HGB Conc 35.2 g/dl (31.0-36.0); Mean Corpuscular Hemoglobin 29.6 pg (27.0-33.0); Mean Corpuscular Volume 84.3 fL (80.0-98.0); Mean Platelet Volume 11.5 fL (9.4-12.4); Monocytes Absolute Auto 0.7 X10*3/uL (0.1-1.2); Neutrophils Absolute Auto 4.4 x10*3/uL (2.0-8.3); Neutrophils Percent Auto 64.2 % (45-73); Platelet Count 202 X10*3/uL (160-400); Red Cell Distribution Width 13.2 % (11.0-16.0); White Blood Count 6.8 X10*3/uL (4.8-10.8)
[2024-03-06 17:46] LABS: Alanine Aminotransferase 33 U/L (0-40); Albumin Level 4.6 g/dL (3.5-5.0); Alkaline Phosphatase 91 U/L (39-117); Anion Gap 15 (12-20); Aspartate Amino Transferase 26 U/L (5-37); Bilirubin Total 0.7 mg/dL (0.0-1.0); Blood Urea Nitrogen 10 mg/dL (9-16); Calcium 10.4 mg/dL (8.4-10.2); Carbon Dioxide 26 mmol/L (22-29); Chloride 99 mmol/L (96-108); Creatinine Clr Calc Pharmacy 83.9; Estimated Glomerular Filt Rate > 60; Glucose Random 367 mg/dL (60-115); Magnesium 2.1 mg/dL (1.6-2.6); Potassium 4.2 mmol/L (3.3-5.1); Sodium 136 mmol/L (135-145); Total Protein 7.6 g/dL (6.5-8.0)
[2024-03-06 18:05] LABS: Influenza A PCR NEGATIVE (Negative); Influenza B PCR NEGATIVE (Negative); Resp Syncy Virus RNA Qual PCR NEGATIVE (Negative); SARS COV2 PCR INHOUSE NEGATIVE (Negative)
[2024-03-06 19:51] VITALS: BP 122/74; PULSE 100; RESP 18; TEMP 36.9; O2SAT 94
[2024-03-06] MEDS: 0.9 % Sodium Chloride 1,000 ML 999 ML IV (20:05)
[2024-03-06 20:16] LABS: Appearance Urine Clear; Color Urine Yellow; Glucose Urine UA >=1000 mg/dL (Negative); Leukocyte Esterase Urine Negative (Negative); Nitrite Urine Negative (Negative); PH 5.5 (5.0-9.0); Specific Gravity - Urine 1.025 (1.005-1.025); UMIC TRIGGER UACC YES; Urine Blood Negative (Negative); Urine Ketones Negative (Negative); Urine Protein Trace mg/dL (Neg-Trace)
[2024-03-06 20:25] LABS: C Reactive Protein 0.96 mg/dL (< or = 0.50); Lipase 22 U/L (8-78)
[2024-03-06 20:25] LABS: Bacteria Urine None Seen (None Seen); Hyaline Casts Urine 0-2 /LPF (0-2); RBC Urine 0-2 /HPF (0-2); Squamous Epithelial Cell Urine 0-2 /HPF (0-2); WBC Urine 0-5 /HPF (0-5)
[2024-03-06] MEDS: iohexoL 350 MG/ML 100 ML INFUS..BTL 85 ML IV (20:31)
[2024-03-06 20:45] LABS: Erythrocyte Sedimentation Rate 5 MM/HR (0-15)
[2024-03-06 21:39] VITALS: BP 114/78; PULSE 92; RESP 18; TEMP 36.7; O2SAT 94
--- NOTE | 2024-03-06 21:40 | MHC.EDTECH ---
Hourly rounds and vitals completed,call dumont in reach
[2024-03-07 00:09] VITALS: BP 114/78; PULSE 92; RESP 18; TEMP 36.7; O2SAT 94
[2024-03-07 05:34] LABS: Estimated Average Glucose 318 mg/dL; Hemoglobin A1c % 12.7 % (<6.0)
== END 2024-03-07 00:10 | disposition home or self-care (01) ==
PROVIDERS: Physician Assistant Medical; Registered Nurse Emergency; Emergency Provider Emergency Medicine Emergency Medical Services; PCP Internal Medicine
DX: R19.7 Diarrhea, unspecified (principal); E11.65 Type 2 diabetes mellitus with hyperglycemia; I10 Essential (primary) hypertension; Z03.818 Encounter for observation for suspected exposure to other biological agents ruled out
CPT/HCPCS: 0241U; 74177; 80053; 81001; 83036; 83690; 83735; 85025; 85652; 86140; 96360; 99284; 99285; Q9967